=== PATIENT | female | born 1945 | race Caucasian/White ===

== ENCOUNTER 2017-05-07 06:51 | Day surgery (SDC) | payer MEDICARE, OTHER, MEDICAID ==
[2017-05-07] MEDS ORDERED: PROPOFOL 20 ML (08:17)
[2017-05-07] MEDS ORDERED: MIDAZOLAM 1 MG/ML 2 ML INJ (08:18)
[2017-05-07] MEDS ORDERED: FENTAnyl 50 MCG/ML VIAL (08:18)
== END 2017-05-07 09:38 | disposition home or self-care (01) ==
LOC: GIL 06:51
DX: K52.9 Noninfective gastroenteritis and colitis, unspecified (principal); K44.9 Diaphragmatic hernia without obstruction or gangrene; K21.9 Gastro-esophageal reflux disease without esophagitis; K29.60 Other gastritis without bleeding; K64.8 Other hemorrhoids; E03.9 Hypothyroidism, unspecified
CPT/HCPCS: 43239; 88305